=== PATIENT | female | born 1955 | race Caucasian/White ===

== ENCOUNTER 2022-12-20 20:34 | Emergency (ER) | payer MEDICARE, BC, SELFPAY ==
[2022-12-20 20:52] VITALS: BP 172/89; PULSE 62; RESP 18; TEMP 36.7; O2SAT 96; BMI 27.4
--- NOTE | 2022-12-20 21:26 | ED_ITS ---
HPI - General Adult General Time Seen by Provider: 21:26 Date Seen: 12/20/22 Chief complaint: Unspecified Complaint, Adult Stated complaint: Can't Eat Dizzy Tense Time Seen by Provider: 12/20/22 21:26 Source: patient and RN notes reviewed Mode of arrival: ambulatory Limitations: no limitations History of Present Illness HPI narrative: Patient is a 67-year-old female whom gets her cares through [facility], [facility] with a multitude of concerns. Just before [place] which was December 05, patient started having left posterior head pain with headaches. She points to the left posterior occipital region where she would feel pain shooting up into her head. She started developing head pressure, dizziness. She has felt anxiety to the point that she can not lie down at night, she feels like she is just going to go out of her body. She has had the sense of feeling like she has to take a deep breath to catch her breath but not short of breath. She has had multiple visits. She did pull up lab results. She has been into the ER in [place] multiple times. She had an MRI of her head today which results are pending. She is scheduled to see Neurology but they could not get that until February. She has been on 5 mg of prednisone for years for and eye issue. There is a question of sinus disease but she states she was not given any antibiotics, they did try a few days of 20 mg of prednisone which ended for 5 days ago. She admits that the anxiety feelings proceeded this increased prednisone. She in her records that she could pull up showed me CT reading from December 05 that showed no acute intracranial disease. There was mild sinusitis involving bilateral ethmoidal and frontal sinuses and left sphenoid sinus. Her CRP on December 05 was 4.5. More recently on 12/17 she had a normal hemoglobin of 14.6, normal platelets of 159141, elevated white blood count of 9900. She had a normal basic metabolic panel outside calcium being upper limits of normal at 10 and glucose elevated at 142. Creatinine was normal at 0.64. She had as a CTA in her records, they did comment on atherosclerotic change that was moderate in the arch of the aorta but nothing in the other vessels. Another incidental finding on that CTA was the fact that she had some left upper apical pulmonary nodules that was recommended to follow up in 3 months. She was unaware of the atherosclerotic change or the pulmonary nodules. Patient does smoke, some social alcohol use but nothing significant. She also reports that they put her on a couple of days of blood pressure medicine. She states prior to this her blood pressure was 120 over 80. She is getting what sounds to be some hot flashes and sweats. She did have the left occipital area injected with something at some point, did not feel like it ever helped. She has no chronic headache conditions prior to this, denies any neck issues. She also reports no appetite, nausea feeling. She had COVID about 2 years ago, no recent illness like this. Related Data Home Medications Medication Instructions Recorded Confirmed aspirin 81 mg capsule 81 mg PO DAILY 12/20/22 12/20/22 atorvastatin .ROUTE 12/20/22 prednisone 5 mg tablet 5 mg PO DAILY 12/20/22 12/20/22 Allergies Allergy/AdvReac Type Severity Reaction Status Date / Time fluoxetine [From Prozac] AdvReac Verified 12/20/22 21:02 gabapentin AdvReac Verified 12/20/22 21:02 Review of Systems Status of ROS: Reports: 10 or more systems reviewed and unremarkable except as noted in History and below [facility] Social History (Updated 12/20/22 @ 22:45 by Jamilah Ferrera MD) Smoking Status: Current every day smoker What tobacco products do you use: cigarettes Do you use any of these nicotine containing products: None Second hand tobacco smoke exposure: No How often do you have a drink containing alcohol: monthly or less How many standard drinks containing alcohol do you have on a typical day: 1 or 2 How often do you have six or more drinks on one occasion: Never AUDIT-C Alcohol total score: 1 Non-prescribed substance use: denies use service: No Exam Const: Vital Signs, click to edit/add: Vital Signs - 24 hr 12/20/22 20:52 Temperature 98.1 F Pulse Rate [Left P ulse Oximeter] 62 Respiratory Rate 18 Blood Pressure [Ri ght Upper Arm] 172/89 H Pulse Oximetry 96 Oxygen Delivery Me thod Room Air Documenting provider has reviewed patient's vital signs: yes Common normals: no apparent distress, average body habitus, oriented x3, no limitations, healthy appearing, alert and well nourished General appearance: cooperative, comfortable, well kempt and well developed HENMT: Common normals: normocephalic, head/scalp atraumatic, hearing grossly normal bilaterally, external ears normal, EAC's normal, TM's normal bilaterally, external nose normal, nasal mucous membranes and turbinates normal, moist oral mucous membranes, oropharynx normal, dentition normal and gingiva normal Head and scalp: normocephalic and atraumatic Nose: external nose normal and nasal mucous membranes and turbinates normal External ear: external ears normal External auditory canal: EAC's normal Tympanic membrane: TM's normal bilaterally Eye: Common normals: PERRL, EOMs intact bilaterally, conjunctivae normal and no scleral icterus Conjunctiva: conjunctiva(e) normal Pupil: PERRL Neck & C-Spine: Common normals: full ROM, no lymphadenopathy, supple, no meningeal signs, no JVD and thyroid normal Thyroid: thyroid normal Other: Has point tenderness just below the occipital area on the left neck. This does reproduce a some of her symptoms. Lymph: Lymphatic: no lymphadenopathy noted Resp: Common normals: normal respiratory effort, no retractions, no use of accessory muscles and clear to auscultation bilaterally Auscultation: clear to auscultation bilaterally Cardio: Common normals: no JVD, regular rate, regular rhythm, S1 normal heart sound, S2 normal heart sound, no gallops, no clicks and no murmurs Rate: regular rate Rhythm: regular rhythm Heart sounds: S1 normal and S2 normal GI: Common normals: Normal to inspection, nondistended, normoactive bowel sounds present, soft to palpation, non-tender, no hepatosplenomegaly and no masses Palpation: soft and no hepatosplenomegaly Extremity: Common normals: no pedal edema Neuro: Common normals: oriented x3 Sensorium/orientation: alert Meningeal signs: no meningeal signs Psych: Appearance: well kempt Course Course Hospital Course: Will try to talk to [facility] to see if I can get her MRI report. Have reviewed with her that we will check full complement of labs, do chest x-ray. I do believe that she is suffering from occipital neuralgia. I do not know how to tie this with her other symptoms such as anxiety in her blood pressure being up. I do not know how to tie that in with nausea feelings. Differential for her symptomatology is quite broad. She has been having symptoms for weeks now. A.m. checking a thyroid just to make sure that this isn't some atypical strange early presentation of hyperthyroidism. Consultations Consultation #1: Did call the transfer center at [facility]. Spoke with a nurse who did give me the impressions on her cervical MRI. It was a cervical MRI without contrast. There was multilevel degenerative disc and facet disease. There was central canal stenosis most significant at C5-C6. The arthritis in her neck certainly could be a causative etiology of an occipital neuralgia. Time: 22:34 Vital Signs Vital signs: Initial Vital Signs Temperature 98.1 F 12/20/22 20:52 Temperature Source Temporal Artery Scan 12/20/22 20:52 Pulse Rate 62 12/20/22 20:52 Respiratory Rate 18 12/20/22 20:52 Blood Pressure 172/89 H 12/20/22 20:52 Blood Pressure Mean 116 H 12/20/22 20:52 Blood Pressure Position Sitting 12/20/22 20:52 Pulse Oximetry 96 12/20/22 20:52 Oxygen Delivery Method Room Air 12/20/22 20:52 Vital Signs Temperature 98.1 F 12/20/22 20:52 Pulse Rate 62 12/20/22 20:52 Respiratory Rate 18 12/20/22 20:52 Blood Pressure 172/89 H 12/20/22 20:52 Pulse Oximetry 96 12/20/22 20:52 Oxygen Delivery Method Room Air 12/20/22 20:52 Temperature 98.1 F 12/20/22 20:52 Pulse Rate 62 12/20/22 20:52 Respiratory Rate 18 12/20/22 20:52 Blood Pressure 172/89 H 12/20/22 20:52 Pulse Oximetry 96 12/20/22 20:52 Oxygen Delivery Method Room Air 12/20/22 20:52 Medical Decision Making Lab Data Lab results reviewed: Yes I reviewed the patient's lab results Labs: Lab Results 12/20/22 Range/Units 22:04 WBC 9.48 (4.50-11.00) K/uL RBC 5.22 H (4.00-5.20) m/uL Hgb 14.3 (12.0-16.0) gm/dL Hct 45.2 (33.0-51.0) % MCV 87 (80-100) fL MCH 27 (26-34) pg MCHC 32 (32-36) gm/dL RDW Coeff of Bernadette 14.0 (11.5-15.5) % Plt Count 255 (140-440) K/uL Neut % (Auto) 69.5 (42.0-72.0) % Lymph % (Auto) 22.5 (20-44) % [place] % (Auto) 6.6 (0.0-11.0) % Eos % (Auto) 0.9 (0.0-7.0) % Baso % (Auto) 0.3 (0.0-3.0) % Neut # (Auto) 6.58 (1.7-7.0) K/uL Lymph # (Auto) 2.13 (0.90-2.90) K/uL [place] # (Auto) 0.60 (0.00-0.90) K/UL Eos # (Auto) 0.09 (0.00-0.50) K/uL Baso # (Auto) 0.03 (0.00-0.30) K/uL ESR < 2 L (2-20) mm/hr Sodium 136 (135-149) mmol/L Potassium 4.2 (3.6-5.1) mmol/L Chloride 104 (96-114) mmol/L Carbon Dioxide 27 (20-32) mmol/L BUN 7 (7-30) mg/dL Creatinine 0.6 (0.5-1.5) mg/dL Estimated Creat Clear 50.41 Estimated GFR 98 ml/min Glucose 106 (60-115) mg/dL Calcium 8.9 (8.4-10.6) mg/dL Magnesium 2.0 (1.5-2.6) mg/dL Total Bilirubin 0.6 (0.1-1.5) mg/dL AST 21 (12-35) U/L ALT 20 (4-35) U/L Alkaline Phosphatase 53 (40-150) U/L C-Reactive Protein 0.6 (0.5-1.0) mg/dL Total Protein 6.8 (6.0-8.3) g/dL Albumin 4.3 (3.3-5.0) g/dL TSH 2.420 (0.270-4.200) uIU/mL Imaging Data Chest x-ray: Attestation: I have reviewed the pertinent imaging results. Radiologist's impression: Patient: MARY SANDOVAL Facility:?[facility] Patient ID:?[id number] Site Patient ID:?[id number]. Site :?[id number] Study:?XRay Chest PORTABLE-12/20/2022 10:03:54 PM Ordering Physician:Praneeth Askew Final Report: INDICATION: Difficulty breathing TECHNIQUE: Chest radiograph 1 view COMPARISON: None FINDINGS: Mediastinum: There is an oval calcific density overlying the left hilum measuring 2 cm which may represent a calcified lymph node. The central pulmonary arteries enter the upper limits of normal in size. The heart silhouette is normal in size and morphology. Lung: Both lungs are unremarkable in appearance. No sign of pleural effusion seen. No pneumothorax is identified. Bone and Soft tissue: Unremarkable for age. IMPRESSION: 1. No acute cardiopulmonary disease is seen. Dictated by Franklin Yang MD @ 12/20/2022 10:17:44 PM Dictated by: Franklin Yang MD @ 12/20/2022 22:17:56 (Electronic Signature) Discharge Plan Discharge Clinical Impression: Elevated blood pressure reading, Anxiety, Occipital neuralgia of left side, Nausea Patient Disposition: Home, Self-Care Condition: Stable Instructions: Acute Nausea and Vomiting (ED), Hypertension (ED), Anxiety (ED) Additional Instructions: Take 5 mg Valium when you get home to try to help you sleep. Can redose in 1-2 hours if the initial dose was not sufficient. No that this medication can be addictive, would not recommend chronic use of it. You need to keep your appointment with your primary care provider tomorrow. IA believe that each 1 of your symptoms may need to start be independently worked up. For example, the nausea sometimes can be gallbladder disease. Currently all your liver and gallbladder labs are normal but could consider looking at an ultrasound of the gallbladder to start with. If your blood pressure is remaining elevated in you continue to have anxiety, do think you might want to rule out secondary causes of hypertension. I do believe that the left neck/base of your head pain is very likely a condition called occipital neuralgia. Your MRI did demonstrate some degenerative changes or arthritis changes which can be an underlying cause of this. Heat, anti-inflammatories, muscle relaxants, physical therapy are all modalities that I do think you need to consider. Injections can be done. You may ultimately need to see Neurology. I am not sure how that ties in with the anxiety, the decreased appetite and elevated blood pressure that you are reporting. The incidental findings on your CTA from [facility] on December 17 do include atherosclerotic change of your aorta visualized and pulmonary nodules. You need to follow-up with your primary care provider at review this. Risk factors for vascular disease certainly should be reviewed. Follow-up CT imaging should be done for the pulmonary nodules as recommended in the report. Activity Level: Activity as Tolerated Discharge Diet: Heart Healthy (2 gm sodium, low fat) Prescriptions: No Action prednisone 5 mg tablet 5 mg PO DAILY atorvastatin .ROUTE aspirin 81 mg capsule 81 mg PO DAILY Follow Up/Referrals: Mary Fowler, HOSPITAL [employer]IAL WORKER [Primary Care Provider] - Stand Alone Forms: [employer] Info Instructions
--- NOTE | 2022-12-20 21:48 | CRLHL7_ITS ---
For Patients: As a result of the Cures Act, medical imaging exams and procedure reports are released immediately into your electronic medical record. You may view this report before your referring provider. If you have questions, please contact your health care provider. INDICATION: Difficulty breathing TECHNIQUE: Chest radiograph 1 view COMPARISON: None FINDINGS: Mediastinum: There is an oval calcific density overlying the left hilum measuring 2 cm which may represent a calcified lymph node. The central pulmonary arteries enter the upper limits of normal in size. The heart silhouette is normal in size and morphology. Lung: Both lungs are unremarkable in appearance. No sign of pleural effusion seen. No pneumothorax is identified. Bone and Soft tissue: Unremarkable for age. IMPRESSION: 1. No acute cardiopulmonary disease is seen. Dictated by Franklin Yang MD @ 12/20/2022 10:17:44 PM Dictated by: Franklin Yang MD @ 12/20/2022 22:17:56 (Electronically Signed)
[2022-12-20 22:12] LABS: Basophils Absolute Auto 0.03 K/uL (0.00-0.30); Basophils Percent Auto 0.3 % (0.0-3.0); Eosinophils Absolute Auto 0.09 K/uL (0.00-0.50); Eosinophils Percent Auto 0.9 % (0.0-7.0); Hematocrit 45.2 % (33.0-51.0); Hemoglobin* 14.3 gm/dL (12.0-16.0); Immature Granulocytes Abs Auto 0.02 K/uL (0.00-0.30); Immature Granulocytes Pct Auto 0.2 %; Lymphocytes Absolute Auto 2.13 K/uL (0.90-2.90); Lymphocytes Percent Auto 22.5 % (20-44); Mean Corpuscular HGB Conc 32 gm/dL (32-36); Mean Corpuscular Hemoglobin 27 pg (26-34); Mean Corpuscular Volume 87 fL (80-100); Monocytes Percent Auto 6.6 % (0.0-11.0); Neutrophils Absolute Auto 6.58 K/uL (1.7-7.0); Neutrophils Percent Auto 69.5 % (42.0-72.0); Platelet Count* 255 K/uL (140-440); Red Blood Count 5.22 m/uL (4.00-5.20); White Blood Count* 9.48 K/uL (4.50-11.00)
[2022-12-20 22:25] LABS: Albumin* 4.3 g/dL (3.3-5.0); Chloride* 104 mmol/L (96-114)
[2022-12-20 22:26] LABS: Potassium* 4.2 mmol/L (3.6-5.1); Sodium* 136 mmol/L (135-149)
[2022-12-20 22:28] LABS: Alkaline Phosphatase* 53 U/L (40-150); Aspartate Amino Transferase* 21 U/L (12-35); Bilirubin Total* 0.6 mg/dL (0.1-1.5); Carbon Dioxide* 27 mmol/L (20-32); Creatinine* 0.6 mg/dL (0.5-1.5); Est. Creatinine Clearance* 50.41; Estimated Glomerular Filt Rate 98 ml/min; Total Protein* 6.8 g/dL (6.0-8.3)
[2022-12-20 22:29] LABS: Alanine Aminotransferase* 20 U/L (4-35); Blood Urea Nitrogen* 7 mg/dL (7-30); Calcium* 8.9 mg/dL (8.4-10.6); Glucose* 106 mg/dL (60-115)
[2022-12-20 22:31] LABS: C Reactive Protein* 0.6 mg/dL (0.5-1.0)
[2022-12-20 22:55] LABS: Slide Review Reflex No
[2022-12-20 23:12] LABS: Erythrocyte SedimentationRate* < 2 mm/hr (2-20)
[2022-12-21] MEDS: diazePAM 5 MG TABLET 10 MG PO (00:05)
== END 2022-12-21 00:03 | disposition home or self-care (01) ==
PROVIDERS: Emergency Provider Family Medicine; PCP Nurse Practitioner Family
DX: M54.81 Occipital neuralgia (principal); F41.9 Anxiety disorder, unspecified; R03.0 Elevated blood-pressure reading, without diagnosis of hypertension
CPT/HCPCS: 36415; 71045; 80053; 83735; 84443; 85025; 85651; 86140; 99284